=== PATIENT | male | born 1945 | race Caucasian/White ===

== ENCOUNTER 2023-11-15 10:15 | Observation (INO) ==
[2023-11-15] MEDS: Lactated Ringers 1000 ml BAG 1,000 ML IV ONE (13:18)
[2023-11-15 13:27] LABS: ABS Basophils 0.1 10^3/uL (0.0-0.1); ABS Eosinophils 0.1 10^3/uL (0.0-0.5); ABS Lymphocytes 1.1 10^3/uL (1.0-4.8); ABS Monocytes 0.6 10^3/uL (0.0-1.1); ABS Neutrophils 6.3 10^3/uL (1.5-7.6); ABS Nucleated RBC 0.01 10^3/ul; Eosinophil % 1.1 %; Hematocrit 51.2 % (38-53); Hemoglobin 17.8 g/dL (13.2-16.3); Lymphocyte % 13.8 %; Mean Corpuscular Hemoglobin 31.8 pg (27-33); Mean Corpuscular Hgb Conc 34.7 g/dL (31-36); Mean Corpuscular Volume 91.6 fL (80-97); Mean Platelet Volume 9.3 fL (7.5-11.2); Nucleated Red Blood Cells % 0.1 %/100WBC (0.0-0.8); Platelet Count 195 10^3/uL (150-450); Red Blood Count 5.59 10^6/uL (4.06-5.63); Red Cell Distribution Width 13.8 % (12-17); White Blood Count 8.2 10^3/uL (3.6-10.2)
[2023-11-15 14:02] LABS: Albumin 4.2 g/dL (3.2-5.2); Albumin/Globulin Ratio 1.8 (1-3); Calcium 9.1 mg/dL (8.6-10.3); Creatinine, Serum 1.13 mg/dL (0.67-1.17); Globulin 2.4 g/dL (2-4); Magnesium 2.1 mg/dL (1.9-2.7); Phosphorus 2.4 mg/dL (2.5-5.0); Potassium 4.5 mmol/L (3.5-5.0); Total Bilirubin 1.2 mg/dL (0.2-1.0); Total Protein 6.6 g/dL (6.4-8.9); eGFR CKD-EPI 67.4 (>60)
[2023-11-15] MEDS: Iohexol 350 (CONTRAST) 500 ML MDV IV ONE (14:28)
[2023-11-15 14:41] LABS: High Sensitivity Troponin 1 Hr 9 pg/mL (<20)
[2023-11-15] MEDS: Enoxaparin 80 MG/0.8 ML SYR SUBCUT ONE (14:59)
[2023-11-15] MEDS ORDERED: Senna TAB 8.6 mg TAB PO PRN (16:08)
[2023-11-15 16:17] LABS: Urine Appearance Clear; Urine Bilirubin Negative (Negative); Urine Blood Negative (Negative); Urine Color Light-Yellow; Urine Glucose Negative (Negative); Urine Ketones Negative (Negative); Urine Nitrite Negative (Negative); Urine Protein Trace (Negative); Urine Specific Gravity >1.050 (1.002-1.030); Urine Urobilinogen Negative (Negative)
[2023-11-15] MEDS ORDERED: Sulfur Hexaflouride MICROSPHR 25 MG VIAL ONE (16:21)
[2023-11-15 17:53] LABS: TSH Ultra Thyroid Stim Horm 1.77 mcIU/mL (0.34-5.60)
[2023-11-16 05:45] LABS: ABS Basophils 0.1 10^3/uL (0.0-0.1); ABS Eosinophils 0.2 10^3/uL (0.0-0.5); ABS Lymphocytes 1.5 10^3/uL (1.0-4.8); ABS Monocytes 0.6 10^3/uL (0.0-1.1); ABS Neutrophils 5.1 10^3/uL (1.5-7.6); ABS Nucleated RBC 0.01 10^3/ul; Hematocrit 47.8 % (38-53); Hemoglobin 16.8 g/dL (13.2-16.3); Lymphocyte % 19.8 %; Mean Corpuscular Hemoglobin 32.2 pg (27-33); Mean Corpuscular Volume 91.7 fL (80-97); Mean Platelet Volume 7.9 fL (7.5-11.2); Nucleated Red Blood Cells % 0.1 %/100WBC (0.0-0.8); Platelet Count 203 10^3/uL (150-450); Red Blood Count 5.21 10^6/uL (4.06-5.63); White Blood Count 7.5 10^3/uL (3.6-10.2)
[2023-11-16 06:13] LABS: Calcium 8.4 mg/dL (8.6-10.3); Creatinine, Serum 1.05 mg/dL (0.67-1.17); Magnesium 1.9 mg/dL (1.9-2.7); Potassium 4.4 mmol/L (3.5-5.0); eGFR CKD-EPI 73.6 (>60)
[2023-11-16] MEDS: Magnesium Sulfate IV 1GM/100ML 1 GM/100 ML BAG IV ONE (09:01)
[2023-11-16] MEDS ORDERED: Enoxaparin 40 MG/0.4 ML SYR SUBCUT SCH (14:00)
[2023-11-16] MEDS ORDERED: Midazolam 5 mg/5 ml VIAL 1 mg/ml 5 ml VIAL (5 mg) ONE (14:56)
[2023-11-16] MEDS ORDERED: Flumazenil 0.5 mg/5 ml 0.1 MG/ML 5 ml VIAL ONE (14:56)
[2023-11-16] MEDS ORDERED: fentaNYL 100 mcg/2 ml 50 MCG/ML VIAL ONE (14:56)
[2023-11-16] MEDS ORDERED: Naloxone 0.4 mg VIAL 0.4 mg/ml 1 ml VIAL ONE (14:56)
[2023-11-16] MEDS ORDERED: Flumazenil 0.5 mg/5 ml 0.1 MG/ML 5 ml VIAL IV PRN (15:18)
[2023-11-16] MEDS ORDERED: Naloxone 0.4 mg VIAL 0.4 mg/ml 1 ml VIAL IV PUSH PRN (15:18)
[2023-11-16] MEDS: fentaNYL 100 mcg/2 ml 50 MCG/ML VIAL IV SLOW PU ONE (15:57)
[2023-11-16] MEDS: Midazolam 10 mg/10 ml VIAL 1 mg/ml 10 ml VIAL (10 mg) IV SLOW PU ONE (15:58)
[2023-11-16 17:31] VITALS: BP 122/89
[2023-11-17] MEDS ORDERED: Aspirin EC 325 mg TAB.EC PO SCH (09:00)
== END 2023-11-16 17:32 | disposition home or self-care (01) ==
LOC: ED 10:15 → EDHOLD 10:15 → SUATTDRO 16:08 → EDHOLD 11-16 17:31
PROVIDERS: ADMIT Internal Medicine; ATTEND Student in an Organized Health Care Education/Training Program

== ENCOUNTER 2024-05-07 20:33 | Observation (INO) ==
[2024-05-07 21:05] LABS: ABS Basophils 0.1 10^3/uL (0.0-0.1); ABS Eosinophils 0.2 10^3/uL (0.0-0.5); ABS Lymphocytes 1.1 10^3/uL (1.0-4.8); ABS Monocytes 0.8 10^3/uL (0.0-1.1); ABS Neutrophils 9.1 10^3/uL (1.5-7.6); ABS Nucleated RBC 0.01 10^3/ul; Eosinophil % 1.9 %; Hematocrit 41.1 % (38-53); Hemoglobin 13.8 g/dL (13.2-16.3); Lymphocyte % 9.7 %; Mean Corpuscular Hemoglobin 30.9 pg (27-33); Mean Corpuscular Hgb Conc 33.6 g/dL (31-36); Mean Corpuscular Volume 91.8 fL (80-97); Mean Platelet Volume 8.5 fL (7.5-11.2); Platelet Count 165 10^3/uL (150-450); Red Blood Count 4.48 10^6/uL (4.06-5.63); Red Cell Distribution Width 14.4 % (12-17); White Blood Count 11.3 10^3/uL (3.6-10.2)
[2024-05-07 21:16] LABS: INR 1.1 (0.85-1.14)
[2024-05-07 21:27] LABS: Albumin 3.9 g/dL (3.2-5.2); Albumin/Globulin Ratio 1.7 (1-3); Calcium 8.2 mg/dL (8.6-10.3); Creatinine, Serum 1.05 mg/dL (0.67-1.17); Globulin 2.3 g/dL (2-4); Potassium 4.2 mmol/L (3.5-5.0); Total Bilirubin 0.5 mg/dL (0.2-1.0); Total Protein 6.2 g/dL (6.4-8.9); eGFR CKD-EPI 73.1 (>60)
[2024-05-07 23:00] LABS: High Sensitivity Troponin 1 Hr 60 pg/mL (<20)
[2024-05-08] MEDS: Iohexol 350 (CONTRAST) 500 ML MDV IV ONE (02:12)
[2024-05-08] MEDS: Calcium Carb (TUMS) 500 mg CHEW TAB PO ONE (03:59)
[2024-05-08 05:04] LABS: C Reactive Protein 5.67 mg/L (<8.01)
[2024-05-08] MEDS ORDERED: Sulfur Hexaflouride MICROSPHR 25 MG VIAL IV PRN (07:40)
[2024-05-08 15:55] VITALS: BP 116/74
== END 2024-05-08 15:55 | disposition home or self-care (01) ==
LOC: EDHOLD 20:33 → ED 20:33 → EDHOLD 05-08 15:54
PROVIDERS: ADMIT Internal Medicine; ATTEND Internal Medicine